=== PATIENT | female | born 1980 ===

== ENCOUNTER 2016-07-09 20:28 | Observation (INO) | payer OTHER ==
[2016-07-09 21:00] VITALS: BP 131/61; PULSE 78; RESP 30; O2SAT 100
[2016-07-09 22:15] LABS: BASO # 0.1 K/uL (0.0-0.2); EOS # 0.1 K/uL (0.0-0.7); EOS % 1.7 % (0.0-4.0); HEMATOCRIT 36.4 % (34.0-47.0); LYMPH # 1.3 K/uL (1.0-4.3); LYMPH % 17.9 % (20.0-40.0); MEAN CELL VOLUME 72.7 fl (81.0-99.0); MEAN CORPUSCULAR HEMOGLOBIN 23.2 pg (27.0-31.0); MEAN CORPUSCULAR HGB CONC 31.9 g/dL (33.0-37.0); MEAN PLATELET VOLUME 8.4 fl (7.2-11.7); MONO # 0.5 K/uL (0.0-0.8); MONO % 7.3 % (0.0-10.0); NEUT # 5.3 K/uL (1.8-7.0); NEUT % 72.1 % (50.0-75.0); RED CELL DISTRIBUTION WIDTH 15.8 % (11.5-14.5); WHITE BLOOD COUNT 7.4 K/uL (4.8-10.8)
[2016-07-09 22:25] LABS: ALB/GLOB RATIO 1.3 (1.0-2.1); ALCOHOL SERUM < 10 mg/dl (0-10); ALKALINE PHOSPHATASE 83 U/L (38-126); ALT/SGPT 34 U/L (9-52); AST/SGOT 20 U/L (14-36); BILIRUBIN,TOTAL 0.2 mg/dl (0.2-1.3); BLOOD UREA NITROGEN 11 mg/dl (7-17); CALCIUM 9.3 mg/dL (8.4-10.2); CARBON DIOXIDE 26 mmol/L (22-30); CHLORIDE 106 mmol/L (98-107); GFR AFRICAN-AMERICAN > 60; GLUCOSE,RANDOM 87 mg/dL (65-105); POTASSIUM 3.9 MMOL/L (3.6-5.0); SODIUM 146 mmol/l (132-148); TOTAL PROTEIN 8.1 G/DL (6.3-8.2)
[2016-07-09 22:50] LABS: PARTIAL THROMBOPLASTIN TIME 24.6 SECONDS (23.3-32.5)
--- NOTE | 2016-07-09 22:55 | ED PDOC ---
HPI: Psych/Substance Abuse Time Seen by Provider: 07/09/16 20:35 Chief Complaint (Nursing): Psychiatric Evaluation ED Caveat: Intoxicated History Per: EMS History/Exam Limitations: intoxication Current Symptoms Are (Timing): Still Present Modifying Factor(s): Alcohol Severity: Moderate Additional Complaint(s): 35 year old female is bought into the ED by EMS for public intoxication. She was found walking outside in the snow in inadequate clothing into the street. Unable to obtain HPI due to intoxication. Past Medical History Reviewed: Historical Data, Nursing Documentation, Vital Signs, Unable To Obtain (due to intoxication) Vital Signs: Last Vital Signs Temp Pulse 78 07/09/16 20:59 Resp 30 H 07/09/16 20:59 BP 131/61 07/09/16 20:59 Pulse Ox 100 07/09/16 20:59 - Family History Family History: States: No Known Family Hx - Allergies Allergies/Adverse Reactions: Allergies Allergy/AdvReac Type Severity Reaction Status Date / Time Unobtainable Allergy Verified 07/09/16 20:35 Review of Systems Review Of Systems: ROS cannot be obtained secondary to pt's inabilty to answer questions. (due to intoxication) Physical Exam - Reviewed Nursing Documentation Reviewed: Yes Vital Signs Reviewed: Yes - Physical Exam Appears: Positive for: Non-toxic, No Acute Distress. Negative for: Well ( dissheveled) Head Exam: Positive for: ATRAUMATIC, NORMOCEPHALIC Skin: Positive for: Normal Color, Warm, Dry Neurologic/Psych: Positive for: Alert, Oriented (oriented to person) - Laboratory Results Result Diagrams: 07/09/16 22:07 07/09/16 22:07 - ECG O2 Sat by Pulse Oximetry: 100 (RA) Pulse Ox Interpretation: Normal Medical Decision Making Medical Decision Makin:35 Initial impression: 35 year old intoxicated female. Initial plan: * alcohol serum * CMP * urinary drug screen * PTT * prothrombin time * 1:1 observation * accucheck * reevaluation 21:17 Patient will be placed into ED observation pending lab results, reevaluation, and final disposition. 0600: Patient AAOx3 ambulating with steady gait and clear speech and stable for d/c. Dx: PCP abuse stable Scribe Attestation: Documented by Callie De Santiago, acting as a scribe for Alessio Chavez MD. Provider Scribe Attestation: All medical record entries made by the Scribe were at my direction and personally dictated by me. I have reviewed the chart and agree that the record accurately reflects my personal performance of the history, physical exam, medical decision making, and the department course for this patient. I have also personally directed, reviewed, and agree with the discharge instructions and disposition. ED OBSERVATION Date of observation admission: 07/09/16 Time of observation admission: 21:17 - Observation admission statement Patient is being placed in observation because:: secondary to clinical condition - Goals of Observation Goals of observation are:: Patient is placed in ED observation pending reevaluation and final disposition. Disposition - Clinical Impression Clinical Impression: PCP (phencyclidine) abuse - Patient ED Disposition Is Patient to be Admitted: No - Disposition Disposition: Routine/Home Disposition Time: 21:17 Condition: STABLE
== END 2016-07-10 06:20 | disposition home or self-care (01) ==
LOC: H.ER 20:28 → EDBD 20:28 → H.EROBSV 21:17 → MERGE 21:17
PROVIDERS: ADMIT Emergency Medicine; ATTEND Emergency Medicine
DX: F16.129 Hallucinogen abuse with intoxication, unspecified (principal)

== ENCOUNTER 2016-07-23 23:12 | Emergency (ER) | payer OTHER ==
[2016-07-23 23:35] VITALS: BP 147/72; PULSE 102; RESP 16; TEMP 98; O2SAT 100
--- NOTE | 2016-07-24 00:31 | ED PDOC ---
HPI: Psych/Substance Abuse Time Seen by Provider: 07/23/16 23:44 Chief Complaint (Nursing): Substance Abuse Chief Complaint (Provider): Depression History Per: Patient History/Exam Limitations: no limitations Onset/Duration Of Symptoms: Days Current Symptoms Are (Timing): Still Present Suicide/Self Injury Attempted (Context): None Modifying Factor(s): Marijuana, Other (PCP) Associated Symptoms: Anxiety, Depression. denies: Suicidal Thoughts, Suicidal Plan Involuntary Hold By: None Additional History Per: Patient Additional Complaint(s): 35 y/o homeless female with history of chronic depression and anxiety, on Klonopin, who is here this evening complaining of worsening depression without HI/SI. She admits to daily PCP and Marijuana abuse, no other ilicit drugs. Patient also complains of left shoulder pain x2 months following a fall. Did not seek evaluation. PMD: Dr. Curtis Past Medical History Vital Signs: Last Vital Signs Temp 98.0 F 07/23/16 23:32 Pulse 102 H 07/23/16 23:32 Resp 16 07/23/16 23:32 BP 147/72 07/23/16 23:32 Pulse Ox 100 07/23/16 23:32 - Medical History PMH: Anxiety, Depression - Surgical History Surgical History: Cholecystectomy - Family History Family History: States: Unknown Family Hx - Living Arrangements Living Arrangements: Other (homeless) - Social History Drugs: Other (PCP) - Immunization History Hx Tetanus Toxoid Vaccination: No - Home Medications Home Medications: Ambulatory Orders Medication Instructions Recorded Naproxen 500 mg PO BID #20 tab 07/24/16 - Allergies Allergies/Adverse Reactions: Allergies Allergy/AdvReac Type Severity Reaction Status Date / Time No Known Allergies Allergy Verified 07/23/16 23:32 Review of Systems ROS Statement: Except As Marked, All Systems Reviewed And Found Negative Musculoskeletal: Positive for: Shoulder Pain Psych: Positive for: Anxiety, Depression. Negative for: Suicidal ideation Physical Exam - Physical Exam Appears: Positive for: Well, No Acute Distress Head Exam: Positive for: ATRAUMATIC, NORMAL INSPECTION, NORMOCEPHALIC Skin: Positive for: Warm, Dry Eye Exam: Positive for: EOMI, PERRL ENT: Positive for: Normal ENT Inspection Neck: Positive for: Normal, Painless ROM Cardiovascular/Chest: Positive for: Regular Rate, Rhythm Respiratory: Positive for: Normal Breath Sounds. Negative for: Rales, Rhonchi, Wheezing Gastrointestinal/Abdominal: Positive for: Bowel Sounds, Soft. Negative for: Tenderness, Distended, Guarding, Rebound Back: Positive for: Normal Inspection Extremity: Positive for: Normal ROM, Other (Pain with ROM of the left shoulder. ). Negative for: Deformity Neurologic/Psych: Positive for: Alert, Oriented, Other (Calm and cooperative) - ECG O2 Sat by Pulse Oximetry: 100 (RA) Pulse Ox Interpretation: Normal - Other Rad Xray left shoulder X-Ray: Interpreted by Me, Viewed By Me X-Ray Interpretation: humeral head fracture Medical Decision Making Medical Decision Making: Initial Impression: Depression. PCP Abuse. Left Shoulder Fracture v. Sprain. Initial Plan: - Crisis Evaluation for Depression - XR Left Shoulder - Resources for PCP abuse. Pt is cleared for discharge by Dr Murillo. Scribe Attestation: Documented by Toyin Munoz, acting as a scribe for Radha Maurer MD. Scribe Attestation: All medical record entries made by the Scribe were at my direction and personally dictated by me. I have reviewed the chart and agree that the record accurately reflects my personal performance of the history, physical exam, medical decision making, and the department course for this patient. I have also personally directed, reviewed, and agree with the discharge instructions and disposition. Disposition - Clinical Impression Clinical Impression: Humeral head fracture, PCP (phencyclidine) abuse - Patient ED Disposition Is Patient to be Admitted: No Doctor Will See Patient In The: Office Counseled Patient/Family Regarding: Studies Performed, Diagnosis, Need For Followup - Disposition Referrals: [facility] [Outside] Bimal Mccurdy III, MD [Staff Provider] - Disposition: Routine/Home Disposition Time: 06:46 Condition: GOOD Additional Instructions: Follow up with your PCP in 2-3 days. Prescriptions: Naproxen 500 mg PO BID #20 tab Instructions: Polysubstance Abuse (ED), Arm Fracture in Adults (ED)
--- NOTE | 2016-07-24 09:21 | RAD ---
PROCEDURE: Radiographs of the Left Shoulder HISTORY: shouler pain injury COMPARISON: No prior. FINDINGS: BONES: Normal. No fractureThere is suspicious for avulsion fracture at or adjacent to the greater tuberosity of the left humeral head. Otherwise no evidence of acute fracture or dislocation. . JOINTS: Normal. Glenohumeral and acromioclavicular joints preserved. No osteoarthritis. There is narrowing of the subacromial space. SOFT TISSUES: There are also soft tissue calcification adjacent to the left humeral head suspicious for calcified tendinitis OTHER FINDINGS: None. IMPRESSION: Suspicious for possible avulsion fracture at the left humeral tuberosity. Further assessment by CT or MRI may be obtained. Suspicious for calcified tendinitis. Narrowing of the subacromial space and the possibility of rotator cuff tear should be considered.
== END 2016-07-24 07:01 | disposition home or self-care (01) ==
LOC: H.ER 23:12
DX: S42.292A Other displaced fracture of upper end of left humerus, initial encounter for closed fracture (principal); W19.XXXA Unspecified fall, initial encounter; Y92.89 Other specified places as the place of occurrence of the external cause; F16.10 Hallucinogen abuse, uncomplicated